=== PATIENT | female | born 1955 | race Caucasian/White ===

== ENCOUNTER 2016-10-06 12:23 | Day surgery (SDC) | payer BC ==
[2016-10-05 18:01] LABS: HEMATOCRIT 30.8 % (36.0-48.0); HEMOGLOBIN 9.5 g/dL (12.0-16.0)
[2016-10-05 18:10] LABS: BUN (BLOOD UREA NITROGEN) 18 MG/DL (6-23); CALCIUM, SERUM 8.9 MG/DL (8.5-10.4); CHLORIDE, SERUM 105 MMOL/L (96-112); CO2 (CARBON DIOXIDE) 27 MMOL/L (24-34); CREATININE 0.79 MG/DL (0.55-1.02); GFR AFRICAN AMERICAN 95 ML/MIN (>=60); GFR NON AFRICAN AMERICAN 82 ML/MIN (>=60); GLUCOSE, SERUM 88 MG/DL (60-99); POTASSIUM, SERUM 4.8 MMOL/L (3.5-5.3); SODIUM, SERUM 142 MMOL/L (135-148)
--- NOTE | ~2016-10-06 | OP ---
Record Of Operation [facility] [address] [place]. [address] NAME: JULIA JOHN : 59 STATUS : [facility]#: [id number] AGE: 61 ADM/REG DATE : 10/06/16 MR#: [id number] REPORT SERV DATE: 10/06/16 DICTATED BY: Bia WAGGONER DATE: 10/06/16 REPORT STATUS : Draft TRANSCRIBED BY: CHRIS DATE: 10/06/16 DATE OF PROCEDURE: 10/06/2016 PREOPERATIVE DIAGNOSIS: History of transitional cell carcinoma of the bladder status post chemotherapy, radiation therapy, and left ureteral reimplantation. POSTOPERATIVE DIAGNOSIS: Recurrent transitional cell carcinoma of the bladder, multifocal. PROCEDURE: Cystoscopy, right retrograde pyelography, TURBT (greater than 5 cm lesion), examination under anesthesia. SURGEON: Bia Waggoner M.D. ANESTHESIA: General endotracheal. COMPLICATIONS: None. DRAINS: A 22-Mauritanian two-way Hood catheter. BRIEF HISTORY: Ms. John is a 61-year-old white female seen by me for the first time recently. She has a history of muscle invasive bladder cancer treated in 2013 with TURBT followed by combination of chemotherapy and radiation therapy. 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 The pathology report showed that this had a positive margin, but the hand written note by the surgeon indicated that this was the bladder cuff and not proximal margin. At any rate, she had a CT in July 2016 demonstrated atrophy of the left kidney and some slight residual thickening of the left lateral bladder wall. Her hydronephrosis has resolved. She is here for exam under anesthesia, possible biopsy resection, etc, as well as retrograde. We discussed the risks of bleeding, infection, anesthesia, injury to adjacent organs, recurrent tumor, etc. She received appropriate sensitivity directed preoperative antibiotics. DESCRIPTION OF PROCEDURE: Under excellent general anesthesia, the patient was prepped and draped in standard lithotomy position. Bimanual exam revealed a foreshortened vagina probably 3 cm in depth. I could not feel any obvious pelvic mass. Cystoscopy was performed with a 30 and 70-degree lenses and she had obvious multifocal recurrent tumor. The right orifice appeared normal, and the right retrograde pyelogram showed a normal caliber ureter without filling defect or obstruction and good drainage. I never could find that the left orifice except I think that I saw the implanted site high on the bladder dome, but could not easily reach it. It had tumor within several centimeters and I did not really want to manipulate anymore that I had to. Tumors were all located on the left side, starting at the bladder base, a second distinct tumor just lateral to that, and then another tumor high on the left bladder wall. She also had some diaphanous material associated with the left bladder wall that appeared to even have a suture and I could not resect this stuff and was uncertain of its depth since it was not bleeding and I decided to leave it alone. I left the higher tumor alone as well. I resected the left-sided bladder base tumor, sent as Record Of Operation [address] [place]. [address] NAME: JULIA JOHN : 59 STATUS : [facility] PAT#: [id number] AGE: 61 ADM/REG DATE : 10/06/16 MR#: [id number] REPORT SERV DATE: 10/06/16 DICTATED BY: Bia WAGGONER DATE: 10/06/16 REPORT STATUS : Draft TRANSCRIBED BY: CHRIS DATE: 10/06/16 specimen 1. Specimen 2 was the base of this tumor and then the second smaller tumor was resected. The aggregate with these tumors was about 6 cm. Bleeding was well controlled. The chips were sent as noted above, and I placed a 22-Mauritanian Hood catheter. I plan to discharge Ms. John as an outpatient with the following instructions. DISCHARGE INSTRUCTIONS: 1. Home today with Hood catheter to be removed in two days. 2. Pyridium 200 mg one p.o. t.i.d. p.r.n. bladder pain #15 with three refills. 3. Macrobid 100 mg p.o. b.i.d. x10 days. 4. Follow up in my office in one to two weeks to review pathology and proceed as indicated. If she has invasive disease, then she is going to need a salvage cystectomy which would be a daunting procedure. If that is not possible, she is going to need repeat resection under anesthesia just to control her local disease. CORA/CHRIS Bia Waggoner M.D. / [id number] CC: Rowan Han William C Sylvia Krueger, M.D.
[~2016-10-06 12:23] MED LIST: ASAB PO; COMBIVENT INH; COREG12 PO; COREG6 PO; CRESTOR40 MG PO; FLEX PO; KCL20UDL PO; KLOR-CON M2020 MEQ PO; L40 PO; MIRALAXPKT PO; NITROSTAT0.4 MG SL; PERCOCET1 TA4 PO; PLAVIX PO; PRILO PO; PRILOSEC40 MG PO; PRIN10 PO; PROVENTSOL INH; PROVHFA INH; SINGULAIR1 PO; SPIRO25 PO; VITD PO; ZESTRIL10 MG PO; ZOCOR40 PO
== END 2016-10-06 18:28 | disposition home or self-care (01) ==
LOC: SDC 12:23
PROC: 0TBB8ZZ Excision of Bladder, Via Natural or Artificial Opening Endoscopic (ICD-10-PCS; 2016-10-06)
PROC: BT1DZZZ Fluoroscopy of Right Kidney, Ureter and Bladder (ICD-10-PCS; principal; 2016-10-06 14:45)
DX: C67.2 Malignant neoplasm of lateral wall of bladder (principal); I10 Essential (primary) hypertension; I25.10 Atherosclerotic heart disease of native coronary artery without angina pectoris; I25.2 Old myocardial infarction; E78.00 Pure hypercholesterolemia, unspecified; E78.5 Hyperlipidemia, unspecified; F17.210 Nicotine dependence, cigarettes, uncomplicated; K21.9 Gastro-esophageal reflux disease without esophagitis; M19.90 Unspecified osteoarthritis, unspecified site; J44.9 Chronic obstructive pulmonary disease, unspecified; Z86.73 Personal history of transient ischemic attack (TIA), and cerebral infarction without residual deficits; Z95.5 Presence of coronary angioplasty implant and graft; Z88.0 Allergy status to penicillin; Z88.2 Allergy status to sulfonamides; Z88.1 Allergy status to other antibiotic agents; Z88.7 Allergy status to serum and vaccine; Z86.718 Personal history of other venous thrombosis and embolism; Z79.82 Long term (current) use of aspirin; Z79.02 Long term (current) use of antithrombotics/antiplatelets; Z79.2 Long term (current) use of antibiotics; Z79.899 Other long term (current) drug therapy; Z90.49 Acquired absence of other specified parts of digestive tract; Z98.890 Other specified postprocedural states
CPT/HCPCS: 74420; 80048; 85014; 85018; 88307; 93005; 94640; A9270-GY; J2250; J2370; J2405; J2710; J3010; J3370; Q9967